=== PATIENT | male | born 1940 | race African-American/Black ===

== ENCOUNTER 2022-12-17 08:47 | Inpatient (IN) ==
[2022-12-17 09:23] LABS: Eosinophils % 0.3 % (0.00-10.9); Hematocrit 30.7 VOL% (42.0-52.0); Hemoglobin 10.3 GM/DL (14.0-18.0); Immature Granulocytes % 1.3 %; Immature Granulocytes Absolute 0.13 #; Lymphocytes # 0.7 10*3/uL (1.4-4.0); Lymphocytes % 7.3 % (21.2-54.2); Mean Corpuscular HGB Conc 33.6 GM/DL (32-36); Mean Corpuscular Volume 90.6 FL (87-102); Monocytes # 1.7 10*3/uL (0.11-0.8); Monocytes % 16.8 % (1.7-12.7); NRBC # 0.03 10*3/uL; Neutrophils % 74.3 % (38.7-73.9); Red Blood Count 3.39 MC/CUMM (3.8-5.5); Red Cell Distribution Width 19.4 % (9.3-17.3); White Blood Count 9.88 T/CUMM (4-12)
[2022-12-17 09:25] LABS: Platelet Count 59 T/CUMM (130-400)
[2022-12-17 09:42] LABS: Albumin 3.3 G/DL (3.4-5.0); Bilirubin,Total 0.4 MG/DL (0.20-1.00); Calcium 8.8 MG/DL (8.5-10.1); Osmolality,Calculated 285.1 MOS/KG (273-304); Potassium 3.7 MMOL/L (3.5-5.1); Total Protein 6.3 G/DL (6.4-8.2)
[2022-12-17 09:47] LABS: Eosinophils 1 % (0-10); Lymphocytes 12 % (20-55); Platelet Estimate Decreased; Total Cells Counted 100
[2022-12-17] MEDS ORDERED: SODIUM CHLORIDE 0.9% 1,000 ML IV STA (09:47)
[2022-12-17] MEDS ORDERED: HYDROCORTISONE 100 MG VIAL IV STA (12:17)
[2022-12-17] MEDS ORDERED: PIPERACILLIN/TAZOBACTAM 3,375 MG in SODIUM CHLORIDE 0.9% 100 ML IV STA (12:31)
[2022-12-17] MEDS ORDERED: ACETAMINOPHEN 325 MG TABLET PO PRN (13:20)
[2022-12-17] MEDS ORDERED: ONDANSETRON 4 MG/2 ML VIAL IV PRN (13:20)
[2022-12-17 13:50] LABS: Thyroid Stimulating Hormone 0.562 uIU/ml (0.358-3.74)
[2022-12-17] MEDS ORDERED: ENOXAPARIN 40 MG/0.4 ML SYRINGE SUBCUT SCH (14:00)
[2022-12-17] MEDS: LACTATED RINGERS 1,000 ML IV SCH (16:52)
[2022-12-17] MEDS: FERROUS SULFATE 325 MG TABLET PO SCH (17:20)
[2022-12-17] MEDS: PIPERACILLIN/TAZOBACTAM 3,375 MG in SODIUM CHLORIDE 0.9% 100 ML IV SCH (22:02)
[2022-12-17] MEDS: ACYCLOVIR 200 MG CAPSULE PO SCH (22:03)
[2022-12-17] MEDS: ROSUVASTATIN 20 MG TABLET PO SCH (22:03)
[2022-12-18 04:11] LABS: Basophils % 0.1 % (0.0-0.8); Hematocrit 24.3 VOL% (42.0-52.0); Hemoglobin 8.4 GM/DL (14.0-18.0); Immature Granulocytes % 1.1 %; Immature Granulocytes Absolute 0.09 #; Lymphocytes # 1.1 10*3/uL (1.4-4.0); Lymphocytes % 12.8 % (21.2-54.2); Mean Corpuscular HGB Conc 34.6 GM/DL (32-36); Monocytes # 1.5 10*3/uL (0.11-0.8); Monocytes % 17.5 % (1.7-12.7); NRBC # 0.04 10*3/uL; Neutrophils % 68.5 % (38.7-73.9); Platelet Count 48 T/CUMM (130-400); Red Blood Count 2.73 MC/CUMM (3.8-5.5); Red Cell Distribution Width 18.8 % (9.3-17.3); White Blood Count 8.41 T/CUMM (4-12)
[2022-12-18 04:26] LABS: Albumin 2.6 G/DL (3.4-5.0); Bilirubin,Total 0.4 MG/DL (0.20-1.00); Calcium 8.6 MG/DL (8.5-10.1); Osmolality,Calculated 278.4 MOS/KG (273-304); Potassium 3.5 MMOL/L (3.5-5.1); Total Protein 5.6 G/DL (6.4-8.2)
[2022-12-18 04:29] LABS: Eosinophils 1 % (0-10); Hypochromia Slight; Lymphocytes 22 % (20-55); Platelet Estimate Decreased; Total Cells Counted 100
[2022-12-18 04:30] LABS: Microcytosis Slight
[2022-12-18] MEDS: PIPERACILLIN/TAZOBACTAM 3,375 MG in SODIUM CHLORIDE 0.9% 100 ML IV SCH ×3 (06:35→21:21)
[2022-12-18] MEDS: LACTATED RINGERS 1,000 ML IV SCH ×2 (06:36→18:45)
[2022-12-18] MEDS: HYDROCORTISONE 10 MG TABLET PO SCH ×2 (10:42→21:20)
[2022-12-18] MEDS: PANTOPRAZOLE 40 MG TABLET PO SCH (10:42)
[2022-12-18] MEDS: ACYCLOVIR 200 MG CAPSULE PO SCH ×2 (10:42→21:20)
[2022-12-18] MEDS: ASPIRIN EC 81 MG TABLET PO SCH (10:42)
[2022-12-18] MEDS: FERROUS SULFATE 325 MG TABLET PO SCH ×2 (10:42→18:45)
[2022-12-18] MEDS: allopurinoL 300 MG TABLET PO SCH (10:43)
[2022-12-18] MEDS: ALBUTEROL/IPRATROPIUM 3 ML NEB RESP TX SCH ×2 (16:15→20:46)
[2022-12-18] MEDS: ROSUVASTATIN 20 MG TABLET PO SCH (21:20)
[2022-12-19] MEDS: ALBUTEROL/IPRATROPIUM 3 ML NEB RESP TX SCH ×4 (00:48→21:10)
[2022-12-19] MEDS: LACTATED RINGERS 1,000 ML IV SCH ×2 (04:50→14:37)
[2022-12-19 05:29] LABS: Eosinophils % 0.3 % (0.00-10.9); Hematocrit 23.7 VOL% (42.0-52.0); Immature Granulocytes % 1.4 %; Immature Granulocytes Absolute 0.11 #; Lymphocytes # 1.4 10*3/uL (1.4-4.0); Lymphocytes % 17.9 % (21.2-54.2); Mean Corpuscular HGB Conc 33.8 GM/DL (32-36); Mean Corpuscular Volume 91.2 FL (87-102); Monocytes % 12.1 % (1.7-12.7); Neutrophils % 68.3 % (38.7-73.9); Platelet Count 49 T/CUMM (130-400); Red Cell Distribution Width 19.2 % (9.3-17.3); White Blood Count 7.92 T/CUMM (4-12)
[2022-12-19 05:54] LABS: Calcium 8.5 MG/DL (8.5-10.1); Osmolality,Calculated 282.1 MOS/KG (273-304); Potassium 3.4 MMOL/L (3.5-5.1)
[2022-12-19 05:59] LABS: Polychromasia Slight
[2022-12-19] MEDS: PIPERACILLIN/TAZOBACTAM 3,375 MG in SODIUM CHLORIDE 0.9% 100 ML IV SCH (05:59)
[2022-12-19 06:00] LABS: Hypochromia Slight; Microcytosis 1+; Platelet Estimate Decreased
[2022-12-19] MEDS ORDERED: MAGNESIUM SULF RIDER 4 GM/100 ML PREMIX IV ONE (07:39)
[2022-12-19] MEDS ORDERED: POTASSIUM CHLORIDE 20 MEQ TABLET PO ONE ×2 (08:26→12:00)
[2022-12-19] MEDS ORDERED: SODIUM CHLORIDE 0.9% 1,000 ML IV PRN (08:36)
[2022-12-19] MEDS: ACYCLOVIR 200 MG CAPSULE PO SCH ×2 (10:21→21:12)
[2022-12-19] MEDS: ASPIRIN EC 81 MG TABLET PO SCH (10:21)
[2022-12-19] MEDS: allopurinoL 300 MG TABLET PO SCH (10:21)
[2022-12-19] MEDS: FERROUS SULFATE 325 MG TABLET PO SCH ×2 (10:22→17:15)
[2022-12-19] MEDS: PANTOPRAZOLE 40 MG TABLET PO SCH (10:22)
[2022-12-19] MEDS: AZITHROMYCIN 250 MG TABLET PO SCH (10:30)
[2022-12-19] MEDS: METOPROLOL SUCCINATE XL 25 MG TABLET PO SCH (10:31)
[2022-12-19] MEDS: cefTRIAXone 1,000 MG in SODIUM CHLORIDE 0.9% 100 ML IV SCH (10:33)
[2022-12-19] MEDS: HYDROCORTISONE 10 MG TABLET PO SCH ×2 (10:37→21:13)
[2022-12-19] MEDS: ROSUVASTATIN 20 MG TABLET PO SCH (21:12)
[2022-12-20] MEDS: LACTATED RINGERS 1,000 ML IV SCH (01:54)
[2022-12-20] MEDS: ALBUTEROL/IPRATROPIUM 3 ML NEB RESP TX SCH ×3 (02:59→13:07)
[2022-12-20 04:44] LABS: Basophils % 0.1 % (0.0-0.8); Eosinophils # 0.1 10*3/uL (0.0-0.87); Eosinophils % 0.6 % (0.00-10.9); Hematocrit 31.4 VOL% (42.0-52.0); Hemoglobin 10.4 GM/DL (14.0-18.0); Immature Granulocytes Absolute 0.08 #; Lymphocytes # 1.4 10*3/uL (1.4-4.0); Mean Corpuscular HGB Conc 33.1 GM/DL (32-36); Mean Corpuscular Volume 86.5 FL (87-102); Monocytes # 1.4 10*3/uL (0.11-0.8); Monocytes % 16.2 % (1.7-12.7); Neutrophils % 65.1 % (38.7-73.9); Platelet Count 45 T/CUMM (130-400); Red Blood Count 3.63 MC/CUMM (3.8-5.5); Red Cell Distribution Width 21.3 % (9.3-17.3); White Blood Count 8.33 T/CUMM (4-12)
[2022-12-20 05:02] LABS: Calcium 8.6 MG/DL (8.5-10.1); Osmolality,Calculated 284.8 MOS/KG (273-304); Potassium 3.7 MMOL/L (3.5-5.1)
[2022-12-20 05:10] LABS: Band Neutrophils 1 % (0-10); Lymphocytes 19 % (20-55); Metamyelocytes 1 %; Total Cells Counted 100
[2022-12-20 05:11] LABS: Acanthocytes Few; Anisocytosis 1+; Microcytosis 1+
[2022-12-20 05:12] LABS: Hypochromia Slight; Platelet Estimate Decreased; Target Cells Slight
[2022-12-20] MEDS ORDERED: MAGNESIUM SULF RIDER 4 GM/100 ML PREMIX IV ONE (08:13)
[2022-12-20] MEDS ORDERED: ERGOCALCIFEROL 50,000 UNIT CAPSULE PO SCH (09:00)
[2022-12-20] MEDS: FERROUS SULFATE 325 MG TABLET PO SCH (09:54)
[2022-12-20] MEDS: METOPROLOL SUCCINATE XL 25 MG TABLET PO SCH (09:54)
[2022-12-20] MEDS: ACYCLOVIR 200 MG CAPSULE PO SCH (09:54)
[2022-12-20] MEDS: allopurinoL 300 MG TABLET PO SCH (09:54)
[2022-12-20] MEDS: HYDROCORTISONE 10 MG TABLET PO SCH (09:54)
[2022-12-20] MEDS: ASPIRIN EC 81 MG TABLET PO SCH (09:55)
[2022-12-20] MEDS: PANTOPRAZOLE 40 MG TABLET PO SCH (09:55)
[2022-12-20] MEDS: AZITHROMYCIN 250 MG TABLET PO SCH (09:55)
[2022-12-20] MEDS: cefTRIAXone 1,000 MG in SODIUM CHLORIDE 0.9% 100 ML IV SCH (09:55)
[2022-12-20 15:20] VITALS: BP 146/82
== END 2022-12-20 15:25 | disposition home or self-care (01) | DRG 194 ==
LOC: N.ED 08:47 → N.TELES 13:20 → SUATTDRO 13:20 → N.TELES 15:32
PROVIDERS: ADMIT Internal Medicine; ATTEND Family Medicine